=== PATIENT | male | born 1940 | race Caucasian/White ===

== ENCOUNTER 2016-10-11 12:01 | Emergency (ER) | payer MEDICARE, OTHER ==
[~2016-10-11] VITALS: Ht 177.8 cm; Wt 90.0 kg
[2016-10-11 12:15] VITALS: BP 145/67; PULSE 48; RESP 16; TEMP 98.5; O2SAT 97
[2016-10-11] MEDS ORDERED: GARL1TAB PO (12:48)
[2016-10-11] MEDS ORDERED: RANI75TA8 PO (12:48)
[2016-10-11] MEDS ORDERED: FISH120014 PO (12:48)
[2016-10-11] MEDS ORDERED: CARD180C5 PO (12:48)
[2016-10-11] MEDS ORDERED: OMEGA RED PO (12:48)
[2016-10-11] MEDS ORDERED: TAMS5CAP PO (12:48)
[2016-10-11] MEDS ORDERED: LIPI20TA PO (12:48)
[2016-10-11] MEDS ORDERED: ASPI-110 PO (12:48)
--- NOTE | 2016-10-11 13:01 | PD ---
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 It is anterior. He denies any reinjury but states yesterday he was pushing and moving a 450 pound refrigerator. No pain with activity yesterday, upon waking this morning has had pain. It is sharp. It does not radiate. He feels when he gets up from standing if he begins walking immediately that is when the pain is worsened but if he stands still for a few seconds and then begins to walk he is okay. No pain with movement. He denies any loss range of motion. 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 Denies any weakness or paresthesia. Takes ibuprofen 600 mg which helped. PFSH Past Medical History Cardiovascular Problems: Yes Social History Tobacco Use: No Allergies-Medications (Allergen,Severity, Reaction): Coded Allergies: Inderal (Verified Allergy, Severe, light headed, 10/11/16) Indocin (Verified Allergy, Severe, light headed, 10/11/16) Reported Meds & Prescriptions Reported Meds & Active Scripts Active Reported Ranitidine (Ranitidine HCl) 75 Mg Tab 1 Tab PO DAILY [omega red 3] 1 Tab PO DAILY Fish Oil (Kimberly-3 Fatty Acids) 1,200 Mg Cap 1 Cap PO BID Flomax (Tamsulosin HCl) 0.4 Mg Cap 0.4 Mg PO HS Aspirin 81 (Aspirin) 81 Mg Tabdr 81 Mg PO HS Cardizem CD 24 HR (Diltiazem CD 24 HR) 180 Mg Caper 180 Mg PO DAILY Lipitor (Atorvastatin Calcium) 20 Mg Tab 20 Mg PO HS Garlic 1,250 Mg Tab 1 Tab PO DAILY Review of Systems General / Constitutional: No: Fever Gastrointestinal: No: Abdominal Pain Musculoskeletal: Positive: Other (see the history of present illness) Neurologic: No: Weakness, Focal Abnormalities, Paresthesia, Sensory Disturbance Physical Exam Narrative GENERAL: Well-developed and well-nourished adult male in no acute distress. SKIN: Warm and dry. Good turgor without tenting. HEAD: Normocephalic and atraumatic. CARDIOVASCULAR: Regular rate and rhythm without murmurs, rubs, clicks or gallops. Dorsalis pedis and posterior tibial pulses 2+ bilaterally. No pedal edema. RESPIRATORY: Clear to auscultation bilaterally with symmetrical rise and fall, no distress or use of accessory muscles. GASTROINTESTINAL: Non-tender, non-distended. Normal bowel sounds all 4 quadrants. No masses or organomegaly present. MUSCULOSKELETAL: Left leg is approximately 1 cm longer than the right. There is no rotation. Mild tenderness with palpation of the mid inguinal region without edema or discoloration. The patient palpation of the trochanters. Palpation of the posterior bursa which is chronic per patient. Patient normal active and passive range of motion, does have some pain with external rotation. No gait disturbances. Patient freely moving all four extremities spontaneously. Extremities without clubbing, cyanosis, or edema. No obvious deformities. NEUROLOGIC: CN II-XII grossly intact. Awake and alert. Strength 5/5 bilateral hip flexion, hip extension, plantar and dorsiflexion. Normal speech. PSYCHIATRIC: Appropriate mood and affect; insight and judgment normal. Data Data Last Documented VS Vital Signs Date Time Temp Pulse Resp B/P Pulse Ox O2 Delivery O2 Flow Rate FiO2 10/11/16 12:53 48 16 10/11/16 12:15 98.5 145/67 97 Orders Hip, Uni(Ap&Lat) W Ap Pelvis (10/11/16 12:54) MDM Medical Decision Making Medical Screen Exam Complete: Yes Emergency Medical Condition: Yes Interpretation(s) Last 24 hours Impressions Hip and Pelvis X-Ray 10/11/16 1254 Signed Impressions: Service Date/Time: Tuesday, October 11, 2016 13:20 - CONCLUSION: Good position and alignment of the left the prosthesis. No acute fracture or joint dislocation. Trell Willis MD Differential Diagnosis Hip strain versus hip ligament tear versus sprain versus hip fracture unlikely versus orthotic injury unlikely Narrative Course Patient is a 75-year-old male with a history of left total hip replacement presenting with left hip pain after pushing a refrigerator yesterday. He denies any injury. Pain was delayed in onset. I believe this most likely represents a ligament strain, likely be iliofemoral or pubofemoral. He declines analgesia. Ordered x-ray of the left hip with AP pelvis which shows no malalignment, fracture or effusion. This reaffirms I believe a ligament strain. Patient to continue ibuprofen and recommend icing. He has appointment with his orthopedist back home in [place] on of this week and will follow up then.See discharge paperwork for further instructions. The plan was discussed with the patient who acknowledged their understanding and agreement. Reinforced the follow-up with primary care is critically important. Patient instructed on emergent conditions that should prompt return to ED. Diagnosis Primary Impression: Strain of left hip Qualified Code: S76.012A - Strain of left hip, initial encounter Patient Instructions: General Instructions, Hip Sprain (ED) Additional Instructions: Continue home pain management regimen Apply ice every 1 to 2 hours as needed for pain Avoid maneuvers that aggravate pain Follow-up with your orthopedist on as scheduled Return to the ED for any acute worsening of symptoms Disposition: 01 DISCHARGE HOME Condition: Stable Dalton Driscoll III Oct 11, 2016 13:01
--- NOTE | 2016-10-11 13:58 | RADHPO ---
EXAM DATE/TIME: 10/11/2016 13:20 [facility] COMPARISON: No previous studies available for comparison. INDICATIONS : Heavy pushing and fall, has left hip area pain MEDICAL HISTORY : None. SURGICAL HISTORY : Left hip replacement ENCOUNTER: Initial ACUITY: 1 day PAIN SCORE: 5/10 LOCATION: Left hip FINDINGS: Examination of the left hip was performed with AP Pelvis. There is good position and alignment of the left hip prosthesis. The bony structures are grossly intact. No joint dislocation is demonstrated. T here are degenerative changes of the lower lumbar spine. The bony structures of the pelvis are intact . CONCLUSION: Good position and alignment of the left the prosthesis. No acute fracture or joint dislocation. Trell Willis MD on October 11, 2016 at 13:55 Board Certified Radiologist. This report was verified electronically.
== END 2016-10-11 14:13 | disposition home or self-care (01) ==
LOC: PHEFT 12:01
DX: S76.012A Strain of muscle, fascia and tendon of left hip, initial encounter (principal); Z96.642 Presence of left artificial hip joint; X50.0XXA Overexertion from strenuous movement or load, initial encounter; Y99.8 Other external cause status
CPT/HCPCS: 73502; 99283